=== PATIENT | female | born 1985 | race Caucasian/White ===

== ENCOUNTER → 2019-08-05 | Outpatient (REF) | payer BC, MEDICARE | LOC: M LAB REF 09:31 | PROVIDERS: ATTEND Dermatology | DX: D18.01 Hemangioma of skin and subcutaneous tissue (principal) ==

== ENCOUNTER → 2020-03-23 | Outpatient (CLI) | payer MEDICARE, OTHER | LOC: M LABSMTC 10:17 | PROVIDERS: ATTEND Anesthesiology | DX: Z01.812 Encounter for preprocedural laboratory examination (principal); Z20.828 Contact with and (suspected) exposure to other viral communicable diseases | CPT/HCPCS: C9803; U0003 ==

== ENCOUNTER 2020-03-28 07:56 | Day surgery (SDC) | payer OTHER ==
[~2020-03-28] VITALS: Ht 162.6 cm; Wt 85.3 kg
[2020-03-28] MEDS ORDERED: LIDOCAINE 2% 100MG/5ML SDV (FOR ANES.) As Ordered ONE (08:08)
[2020-03-28] MEDS ORDERED: ONDANSETRON 4MG/2ML VIAL As Ordered ONE (08:08)
[2020-03-28] MEDS ORDERED: propofoL 500 MG/50 ML VIAL As Ordered ONE (08:08)
[2020-03-28] MEDS ORDERED: dexameTHASONE 4 MG/ML 1ML VIAL (J1100 PER 1MG) As Ordered ONE (08:08)
[2020-03-28] MEDS ORDERED: fentaNYL 100 MCG/2 ML INJECTION (J3010) As Ordered ONE (08:09)
[2020-03-28] MEDS ORDERED: MIDAZOLAM INJ 2MG/2ML VIAL (J2250 PER 1MG) As Ordered ONE (08:09)
[2020-03-28] MEDS ORDERED: ceFAZolin 1GM VIAL (J0690 PER 500MG) As Ordered ONE (08:20)
[2020-03-28] MEDS ORDERED: LR 1,000 ML IV ONE (08:30)
[2020-03-28] MEDS ORDERED: ceFAZolin SOD 1 GM in D5W MINI-BAG PLUS 50 ML IV ONE (08:30)
[2020-03-28] MEDS ORDERED: BACITRACIN OINTMENT 30GM TUBE As Ordered ONE (08:43)
[2020-03-28] MEDS ORDERED: LIDOCAINE W/EPINEPHRINE 1% 20ML VIAL As Ordered ONE (08:43)
[2020-03-28] MEDS ORDERED: LIDOCAINE 2% W/EPINEPHRINE 20ML VIAL **PRES FREE As Ordered ONE (08:58)
[2020-03-28] MEDS ORDERED: POVIDONE-IODINE 5% OPHTH PREP SOL 30ML As Ordered ONE (09:49)
[2020-03-28] MEDS ORDERED: POLYSPORIN OPHTH OINT 3.5 GM As Ordered ONE (09:50)
--- NOTE | 2020-03-28 10:15 | POST-OPPD ---
Postoperative Procedure Note Date Of Procedure: Mar 28, 2020 PREOPERATIVE DIAGNOSIS: Right cheek lesion POSTOPERATIVE DIAGNOSIS: same FINDINGS: right cheek punched out lesion PROCEDURE: Excision of right cheek lesion. SURGEON: Dr Worley ANESTHESIA: Local with sedation SPECIMENS: Right cheek lesion ESTIMATED BLOOD LOSS: 1 cc REPLACED: none DRAINS: none COMPLICATIONS: none POSTOPERATIVE CONDITION: stable Dictation: [id number] AYSHA WORLEY DO Mar 28, 2020 10:15
[2020-03-28 11:20] VITALS: BP 119/74
--- NOTE | 2020-04-20 12:12 | RO ---
DATE OF OPERATION: 03/28/2020 PREOPERATIVE DIAGNOSIS: Right cheek lesion. POSTOPERATIVE DIAGNOSIS: Right cheek lesion. PROCEDURE: Excision of right cheek lesion, 0.7 cm. ATTENDING SURGEON: Lynnette Lynn DO ANESTHESIA: Local with sedation. ESTIMATED BLOOD LOSS: 1 mL. FLUID REPLACEMENT: None. COMPLICATIONS: None. 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 She is here for full re-excision and closure. All risks, benefits, and alternatives were discussed with the patient. She was ready to proceed. The lesion measures 0.7 x 0.5-cm. She was marked in the preoperative holding area and then brought into the operating room and placed in supine position. Preoperative antibiotics had been given. Sequentials were placed on the lower calves. Sedation was given to the patient. We started our procedure by giving a block with 2% lidocaine with epinephrine. Then, an elliptical incision was carried out encompassing the whole area of the scar and the remaining lesion. Hemostasis was obtained using electrocautery. Full-thickness excision was carried out. Then, the wound was approximated with interrupted 5-0 Monocryl sutures and 6-0 plain gut dermal suture. Bacitracin was applied. The patient tolerated the procedure well and was transferred to the recovery room in stable condition. SUZIE
== END 2020-03-28 11:24 | disposition home or self-care (01) ==
LOC: M SDC 07:56
PROVIDERS: ATTEND Plastic Surgery Surgery of the Hand
DX: D18.01 Hemangioma of skin and subcutaneous tissue (principal); K21.9 Gastro-esophageal reflux disease without esophagitis; D64.9 Anemia, unspecified; F41.9 Anxiety disorder, unspecified; F17.218 Nicotine dependence, cigarettes, with other nicotine-induced disorders; Z88.2 Allergy status to sulfonamides; Z88.5 Allergy status to narcotic agent; Z88.8 Allergy status to other drugs, medicaments and biological substances
CPT/HCPCS: 11441; 81025; 88305; J0690; J1100; J2250; J2405; J3010